=== PATIENT | female | born 1945 | race Caucasian/White ===

== ENCOUNTER → 2024-04-06 08:37 | Outpatient (REF) | payer MEDICARE, OTHER, SELFPAY | LOC: HWRAD 08:37 | PROVIDERS: ATTENDING PHYSICIAN Obstetrics & Gynecology Gynecology; FAMILY PHYSICIAN Internal Medicine | DX: N95.0 Postmenopausal bleeding (principal) | CPT/HCPCS: 76830; 76856 ==

== ENCOUNTER → 2024-05-03 13:49 | Outpatient (REF) | payer MEDICARE, OTHER, SELFPAY | LOC: HWRAD 13:49 | PROVIDERS: ATTENDING PHYSICIAN Nurse Practitioner Family | DX: M79.674 Pain in right toe(s) (principal) | CPT/HCPCS: 73660 ==

== ENCOUNTER → 2024-10-10 09:24 | Outpatient (REF) | payer MEDICARE, OTHER, SELFPAY | LOC: RCS 09:24 | PROVIDERS: ATTENDING PHYSICIAN Internal Medicine Cardiovascular Disease; FAMILY PHYSICIAN Internal Medicine | DX: Z98.890 Other specified postprocedural states (principal); I49.3 Ventricular premature depolarization | CPT/HCPCS: 93306 ==

== ENCOUNTER → 2025-05-13 07:17 | Outpatient (REF) | payer OTHER, SELFPAY | LOC: MRI 07:17 | PROVIDERS: ATTENDING PHYSICIAN Student in an Organized Health Care Education/Training Program; FAMILY PHYSICIAN Internal Medicine | DX: Z96.652 Presence of left artificial knee joint (principal); M54.16 Radiculopathy, lumbar region; M54.50 Low back pain, unspecified; M47.816 Spondylosis without myelopathy or radiculopathy, lumbar region; M41.26 Other idiopathic scoliosis, lumbar region | CPT/HCPCS: 72148; 73721 ==

== ENCOUNTER → 2025-08-29 11:20 | Outpatient (REF) | payer OTHER, SELFPAY | LOC: RAD 11:20 | PROVIDERS: ATTENDING PHYSICIAN Orthopaedic Surgery; FAMILY PHYSICIAN Internal Medicine | DX: M79.622 Pain in left upper arm (principal) | CPT/HCPCS: 93971 ==

== ENCOUNTER 2025-09-02 10:26 | Emergency (ER) | payer OTHER, SELFPAY ==
[2025-09-02 10:29] VITALS: BP 166/99
[2025-09-02 10:46] VITALS: BP 154/80
[2025-09-02 10:51] VITALS: BMI 27.3
--- NOTE | 2025-09-02 10:51 | ED.GENMED ---
History of Present Illness
General
Chief Complaint: Chest Pain
Time Seen by Provider: 09/02/25 10:37
History of Present Illness
History of Present Illness:
79-year-old female presents the emergency department for evaluation of abrupt onset of chest pain radiating to the jaw that occurred 1 hour prior to arrival. States she was walking around [place] doing some shopping when the symptoms began.
Lasted approximately 10 minutes for resolving. Currently asymptomatic. No associated shortness of breath, dizziness, sweating, nausea, or vomiting. No history of similar symptoms. Prior history of mitral valve repair but no known history of
coronary disease.
Past History
Past History
ED Past Medical History: Arrthythmia (Paroxysmal atrial flutter May 2019), Asthma, HTN, Hypercholesterolemia, Valvular disease (Mitral regurgitation), Hypothyroidism and Other
ED Past Surgical History: Cardiac (Mitral valve repair July 2019; cardiac catheterization June 2019 showing clean coronaries, severe mitral regurgitation) and Orthopedic
Social History
Tobacco: Non-smoker
Alcohol: Daily (Wine)
Drug: None
Personal:
Living: with family
Employment: Retired
Family History
Family History: Other (Noncontributory)
Review of Systems
Review of Systems
Allergies reviewed?: Yes
All Other Systems: ROS reviewed and negative except as documented in HPI and ROS
Phy Exam
Physical Exam
Physical Exam:
GEN: Well appearing, NAD, WDWN
HEENT: Oral mucosa moist, no scleral icterus
Cardiac: Regular rate and rhythm, no murmurs
Lung: No respiratory distress, no tachypnea, lungs clear to auscultation bilaterally
MSK: No gross deformity or injuries
Skin: Good color, no pallor or jaundice, no rashes
Neuro: AO x3, moves all extremities freely
Psych: Calm, cooperative
Scores
Heart Score for Chest Pain Patients
STEMI patient?: No
History: Slightly or Non-Suspicious
ECG: Normal
Age: >/= 65 years
Risk Factors: 1 or 2 Risk Factors
Troponin: </= Normal Limit
Heart Score for Chest Pain Patients: 3
Heart Score Risk: 2.5% MACE over next 6 weeks
Course
Orders/Labs/Results
Orders:
Orders
09/02/25 10:31
EKG [Electrocardiogram (*1)] Urgent
Reason for Study: Chest Pain
EKG- Treatment ONCE
09/02/25 10:51
CR Chest - 2 Views Urgent
Comment:
Reason For Exam: chest pain
09/02/25 11:00
Complete Blood Count/With Diff Urgent
Comprehensive Metabolic Panel Urgent
Troponin I Urgent
09/02/25 12:09
EKG- Treatment ONCE
09/02/25 13:52
Troponin I Routine
09/02/25 14:00
Electrocardiogram (*1) Routine
Reason for Study: Chest Pain
Abnormal Lab Results
09/02/25
11:00
Sodium 133 L mmol/L
(135-145)
BUN 19 H mg/dl
(7-17)
09/02/25 11:00
09/02/25 11:00
Vital Signs
Initial and Last Documented VS:
Initial Vital Signs
Temp Pulse Resp BP Pulse Ox
97.5 F 78 16 166/99 98
09/02/25 10:29 09/02/25 10:29 09/02/25 10:29 09/02/25 10:29 09/02/25 10:29
Last Documented Vital Signs
Temp Pulse Resp BP Pulse Ox
97.5 F 71 15 140/71 96
09/02/25 10:29 09/02/25 14:55 09/02/25 14:55 09/02/25 14:55 09/02/25 14:55
MDM/Problems Addressed
MDM/Problems Addressed:
Initial and repeat troponin are both negative. The patient was symptom-free in the emergency department without any complaint. Interestingly chest x-ray does reveal faint opacity in the right lower lung that may represent pneumonia. While she
does not have clinical symptoms at this, would be remiss if I left this untreated given no other clear cause of her chest pain. Will cover with a 5-day course of doxycycline
Comment
Comment:
EKG independently interpreted by me shows a normal sinus rhythm at a rate of 70 with no ischemic changes, PACs identified
*Pulse Oximetry
SaO2: 97
Oxygen Mode of Delivery: Room air
Patient hypoxic: no
*Critical Care Note
Total Time (30-74mins, 75-104mins- exclusive of procedures): Not Applicable
ED Attending Note
-
Portions of this chart may have been created with voice recognition software.� Occasional wrong word or��sound alike� substitutions may have occurred due to the inherent limitations of voice recognition software.
Discharge Plan
Departure
Patient Disposition: Home (Routine Discharge)
Date of Disposition: 09/02/25
Time of Disposition: 14:41
Patient with high blood pressure during this ER visit?: No
Discharge Problem:
Atypical chest pain, Abnormal chest x-ray
Instructions: Chest Pain That Is Not Caused by the Heart (DC)
Prescriptions:
New
doxycycline monohydrate 100 mg capsule
100 mg PO BID 5 Days Qty: 10 0RF
No Action
montelukast 10 MG tablet
10 mg PO DAILY
esomeprazole magnesium [Nexium] 20 MG capsule,delayed release(DR/EC)
20 mg PO HS
simvastatin 10 MG tablet
10 mg PO HS
levocetirizine [Xyzal] 5 MG tablet
5 mg PO HS
multivitamin with folic acid [Tab-A-Alexsandra] 1 TABLET tablet
1 tab PO DAILY
metoprolol succinate 25 MG tablet extended release 24 hr
25 mg PO HS
fluticasone propionate 1 SPRAY spray,suspension
1 spray intranasal DAILY PRN (Reason: allergies)
cyanocobalamin (vitamin B-12) 1,000 MCG tablet
1,000 mcg PO DAILY
amlodipine 2.5 MG tablet
2.5 mg PO DAILY
levothyroxine [Synthroid] 88 MCG tablet
88 mcg PO DAILY
apixaban [Eliquis] 5 MG tablet
5 mg PO BID
cholecalciferol (vitamin D3) 125 MCG tablet,disintegrating
125 mcg PO DAILY
Referrals:
Kateryna Teague MD [Family Provider, Internal Medicine]
Interventions
Interventions:
*Risk Screen - Suicide Last Done: 09/02/25 10:29
*General Assessment Last Done: 09/02/25 10:51
*Neglect/Abuse Screening Last Done: 09/02/25 10:29
*ED- Fall Risk Assessment Last Done: 09/02/25 10:51
*ED COVID-19 Vaccine History Last Done: 09/02/25 10:51
*ED Influenza Vaccine History Last Done: 09/02/25 10:51
*Nursing Disposition Last Done: 09/02/25 14:55
ED- Cardiac Assessment Last Done: 09/02/25 10:50
Discharge Date and Time
Discharge Date/Time: 09/02/25 14:56
Print Language: [id number]
[2025-09-02 11:00] VITALS: BP 145/75
[2025-09-02 11:10] LABS: Hematocrit 39.9 % (37.0-47.0); Hemoglobin 13.3 g/dL (12.0-16.0); Mean Corp Hgb Conc. 33.3 g/dL (33.0-37.0); Mean Corpuscular Volume 92.8 fL (81.0-99.0); Nucleated Red Blood Cells % 0 %; Platelet Count 243 10^3/uL (130-400); Red Cell Dist. Width 13.4 % (11.5-14.5)
[2025-09-02 11:23] LABS: ALT (SGPT) 21 U/L (0-35); AST (SGOT) 22 U/L (14-36); Albumin 4.1 g/dl (3.5-5.0); Alkaline Phosphatase 55 U/L (38-126); Blood Urea Nitrogen 19 mg/dl (7-17); Calcium 8.8 mg/dl (8.4-10.2); Carbon Dioxide 27 mmol/L (22-30); Chloride 103 mmol/L (98-107); Estimated Creatinine Clearance 53 ml/min; Glucose 99 mg/dl (70-99); Potassium 4.0 mmol/L (3.5-5.1); Sodium 133 mmol/L (135-145); Total Protein 6.5 g/dl (6.3-8.2); eGFR > 60.00
[2025-09-02 11:35] LABS: Troponin I < 0.012 ng/ml
[2025-09-02 12:00] VITALS: BP 147/71
[2025-09-02 13:00] VITALS: BP 140/71
[2025-09-02 14:31] LABS: Troponin I < 0.012 ng/ml
[2025-09-02 14:55] VITALS: BP 140/71
== END 2025-09-02 14:56 | disposition home or self-care (01) ==
LOC: EMR 10:26
PROVIDERS: Physician Assistant; EMERGENCY PHYSICIAN Emergency Medicine; FAMILY PHYSICIAN Internal Medicine
DX: R07.89 Other chest pain (principal); R91.8 Other nonspecific abnormal finding of lung field; I49.1 Atrial premature depolarization; I10 Essential (primary) hypertension; E78.00 Pure hypercholesterolemia, unspecified; J45.909 Unspecified asthma, uncomplicated; E03.9 Hypothyroidism, unspecified
CPT/HCPCS: 99284; 71046; 80053; 84484; 85025; 93005

== ENCOUNTER → 2025-10-16 13:06 | Outpatient (REF) | payer OTHER, SELFPAY | LOC: HWRAD 13:06 | PROVIDERS: ATTENDING PHYSICIAN Internal Medicine | DX: M53.3 Sacrococcygeal disorders, not elsewhere classified (principal) | CPT/HCPCS: 72202 ==